=== PATIENT | female | born 1930 | race Caucasian/White ===

== ENCOUNTER → 2017-01-27 | Outpatient (CLI) | payer OTHER, MEDICARE ==
[~2017-01-27] MED LIST: ADULT LOW STREN81 M2 PO; Cipro PO; Flagyl PO; HYDROCHLOROTHIA25 MG PO; Hydrodiuril,Oretic,E PO; LOPRESSOR50 MG PO; Levothroid,Synthroid PO; Lopressor PO; OMEGA 3-6-91200 MG PO; Protonix PO; SLOW FE142 MG PO; SYNTHROID50 MCG PO; Theragran-M,Centrum, PO
== END | disposition home or self-care (01) ==
LOC: CDC 13:04
DX: I25.10 Atherosclerotic heart disease of native coronary artery without angina pectoris (principal); R94.31 Abnormal electrocardiogram [ECG] [EKG]
CPT/HCPCS: 93000

== ENCOUNTER 2017-02-09 06:23 | Inpatient (IN) | payer OTHER, MEDICARE ==
[~2017-02-09] VITALS: Ht 167.6 cm; Wt 78.5 kg
[~2017-02-09 06:23] MED LIST changes: +ASPIRIN81 M2 PO; +CENTRUM SILVER1 EAC4 PO; +LEVOTHYROXINE50 MCG PO; +MIRALAX17 GM PO; +OMEGA 3 500 SO1 EACH PO; +PANTOPRAZOLE SO40 MG PO; +TOPROL XL50 MG PO; +TYLENOL ARTHRI650 MG PO; +VITAMIN B-121000 MC1 SL
[2017-02-09 07:02] LABS: HEMATOCRIT 41.9 % (36.0-46.0); MCHC 35.1 G/DL (30.0-36.0); MCV 88.4 FL (83-99); MEAN PLAT.VOLUME 10.2 uM^3 (9.5-12.4); PLATELET COUNT 261 K/uL (156-360); RBC DIS.WIDTH-CV 12.1 % (11.8-14.6); RBC DIS.WIDTH-SD 39.4 % (39-53); RED BLOOD COUNT 4.74 M/uL (3.80-5.20); WHITE BLOOD COUNT 6.7 K/uL (4.1-10.2)
[2017-02-09 07:16] VITALS: BP 170/74
[2017-02-09 07:52] LABS: ANION GAP 13 MEQ/L (2-14); CHLORIDE 104 MEQ/L (99-109); GFR ESTIMATE (CALCULATED) 56 mL/min/; GLUCOSE 155 mg/dL (70-99); SAMPLE HEMOLYSIS CHECK 0; SAMPLE ICTERIC CHECK 0; SAMPLE LIPEMIA CHECK 0; SODIUM 142 MEQ/L (136-147); UREA NITROGEN (BUN) 24 mg/dL (9-23)
[2017-02-09] MEDS ORDERED: HYDROCODON-ACE1 EAC7 PO (12:07)
[2017-02-09 17:44] VITALS: BP 164/75
[2017-02-09 20:03] VITALS: BP 139/66
[2017-02-09 23:11] VITALS: BP 114/57
[2017-02-10 04:32] VITALS: BP 156/70
[2017-02-10 05:58] LABS: ANION GAP 7 MEQ/L (2-14); CHLORIDE 105 MEQ/L (99-109); GFR ESTIMATE (CALCULATED) 56 mL/min/; POTASSIUM 3.9 MEQ/L (3.7-5.4); SAMPLE HEMOLYSIS CHECK 0; SAMPLE ICTERIC CHECK 0; SAMPLE LIPEMIA CHECK 0; SODIUM 142 MEQ/L (136-147); UREA NITROGEN (BUN) 17 mg/dL (9-23)
[2017-02-10 06:00] LABS: GLUCOSE 110 mg/dL (70-99)
[2017-02-10 06:20] LABS: HEMATOCRIT 31.4 % (36.0-46.0); MCH 31.8 PG (29.0-34.0); MCHC 35.7 G/DL (30.0-36.0); MCV 89.2 FL (83-99); MEAN PLAT.VOLUME 10.2 uM^3 (9.5-12.4); PLATELET COUNT 188 K/uL (156-360); RBC DIS.WIDTH-CV 12.3 % (11.8-14.6); RBC DIS.WIDTH-SD 39.8 % (39-53); WHITE BLOOD COUNT 10.3 K/uL (4.1-10.2)
[2017-02-10 06:21] LABS: RED BLOOD COUNT 3.52 M/uL (3.80-5.20)
[2017-02-10 07:04] LABS: CK-MB 0.8 ng/mL (0.0-4.9)
[2017-02-10 07:15] LABS: CREATINE KINASE 22 IU/L (1-294); TOTAL CK 22 IU/L (1-294)
[2017-02-10 07:36] VITALS: BP 136/62
== END 2017-02-10 11:03 | disposition home or self-care (01) | DRG 269 ==
LOC: 2SOUTH 06:23 → 4EAST 17:12
PROVIDERS: Surgery
PROC: 04V03D6 (ICD-10-PCS; principal; 2017-02-09)
DX: I71.4 Abdominal aortic aneurysm, without rupture (principal)
CPT/HCPCS: 80048; 82550; 82553; 85027; 86900; 86901; 93005; C1725; C1769; C1887; C1894; J0690; J1644; J1650; J2720; J3010; J7120

== ENCOUNTER 2017-03-10 07:45 | Emergency (ER) | payer OTHER, MEDICARE ==
[~2017-03-10] VITALS: Ht 167.6 cm; Wt 74.4 kg
[~2017-03-10 07:45] MED LIST changes: +HYDROCODON-ACE1 EAC7 PO
[2017-03-10] MEDS ORDERED: FLEXERIL10 MG PO (10:14)
[2017-03-10 11:03] VITALS: BP 129/72
== END 2017-03-10 11:03 | disposition home or self-care (01) ==
LOC: EME 07:45
DX: M19.011 Primary osteoarthritis, right shoulder (principal); E78.5 Hyperlipidemia, unspecified; I10 Essential (primary) hypertension; Z79.82 Long term (current) use of aspirin
CPT/HCPCS: 73030; 93005; 99281; 99284; J3010